=== PATIENT | female | born 1990 | race American Indian/Alaskan Native ===

== ENCOUNTER 2017-11-28 14:46 | Emergency (ER) | payer MEDICAID ==
[2017-11-28 14:59] VITALS: BP 104/47
[2017-11-28 16:15] LABS: HCG Qualitative,Urine Positive (Negative)
[2017-11-28 16:16] LABS: Bilirubin,Urine NEG (Negative); Blood,Urine NEG (Negative); Color,Urine Straw (Yellow); Protein,Urine <15 mg/dL mg/dL (Negative); RBC,Urine < 1.0 /HPF (0.0-6.0); Urobilinogen,Urine < 2.0 mg/dL (<2.0)
== END 2017-11-28 20:45 | disposition left against medical advice (07) ==
LOC: ED 14:46
DX: O26.891 Other specified pregnancy related conditions, first trimester (principal); Z3A.01 Less than 8 weeks gestation of pregnancy; Z53.21 Procedure and treatment not carried out due to patient leaving prior to being seen by health care provider
CPT/HCPCS: 81001; 81025

== ENCOUNTER 2020-10-25 10:14 | Emergency (ER) | payer MEDICAID ==
[2020-10-25 11:44] VITALS: BP 116/68
== END 2020-10-25 15:20 | disposition left against medical advice (07) ==
LOC: ED 10:14
DX: M79.89 Other specified soft tissue disorders (principal); Z53.21 Procedure and treatment not carried out due to patient leaving prior to being seen by health care provider